=== PATIENT | male | born 1950 | race Caucasian/White ===

== ENCOUNTER 2017-04-21 17:39 | Inpatient (IN) | payer MEDICARE, OTHER ==
[~2017-04-21] VITALS: Ht 177.8 cm; Wt 78.3 kg
[~2017-04-21 17:39] MED LIST: ASPI-621 PO; ASPI325T4 PO; CARI350T PO; ENAL5TAB34 PO; HYDR-3138 PO; METO25TA35 PO; OMEP20TA62 PO; TRAM50TA2 PO; WARF7.5T6 PO-COUM
[2017-04-21] MEDS ORDERED: SODIUM CHLORIDE 0.9% 1,000ML IVBOLUS ONE ×2 (18:30→20:30)
[2017-04-21] MEDS ORDERED: ONDANSETRON 2MG/ML, 2ML IVPush ONE (18:30)
[2017-04-21] MEDS ORDERED: SODIUM CHLORIDE FLUSH 10ML SYR IVF ONE (18:30)
[2017-04-21] MEDS ORDERED: ONDANSETRON 2MG/ML, 2ML ONE (19:16)
[2017-04-21 19:34] LABS: BLOOD UREA NITROGEN 14 mg/dL (7-18)
[2017-04-21 19:37] LABS: ASPARTATE AMINO TRANSFERASE 50 U/L (15-37)
[2017-04-21 19:40] LABS: IS PT STATUS REG ER OR PRE ER? YES
[2017-04-21 19:55] LABS: DIFF TOTAL CELLS COUNTED 100 CELL DIFF
[2017-04-21 19:57] LABS: VERIFY COUNTS? YES
[2017-04-21] MEDS ORDERED: LEVOFLOXACIN/PMX 750MG/150ML 150 ML ONE (21:26)
[2017-04-21] MEDS ORDERED: LEVOFLOXACIN/PMX 750MG/150ML 150 ML IVPB ONE (21:30)
[2017-04-21] MEDS ORDERED: TEMAZEPAM 15 MG CAPSULE PO PRN (22:30)
[2017-04-21] MEDS ORDERED: DOCUSATE 100 MG CAPSULE PO PRN (22:30)
[2017-04-21] MEDS ORDERED: ENALAPRILAT 1.25 MG/ML, 2ML IVPush PRN (22:30)
[2017-04-21] MEDS ORDERED: BISACODYL 10 MG SUPP PR PRN (22:30)
[2017-04-21] MEDS ORDERED: hydrALAzine 20 MG/ML, 1ML IVPush PRN (22:30)
[2017-04-21] MEDS ORDERED: OXYcodone IR 5MG TABLET PO PRN (22:30)
[2017-04-21] MEDS ORDERED: morphine SULFATE 10 MG/ML, 1ML IVPush PRN (22:30)
[2017-04-21] MEDS ORDERED: POLYETHYLENE GLYCOL 17 GM PACKET PO PRN (22:30)
[2017-04-21] MEDS ORDERED: ONDANSETRON 2MG/ML, 2ML IVPush PRN (22:30)
[2017-04-21] MEDS: SODIUM CHLORIDE 0.9% 1,000 ML IV SCH (23:51)
[2017-04-21] MEDS: CEFTRIAXONE PMX 1GM/50ML 50 ML IV SCH (23:51)
[2017-04-22 00:03] VITALS: BP 150/69
[2017-04-22] MEDS: GUAIFENESIN ER 600 MG TABLET PO SCH ×3 (00:08→20:34)
[2017-04-22] MEDS: HEPARIN 5,000 UNITS/ML, 1ML SQ SCH ×3 (00:08→16:42)
[2017-04-22] MEDS: AZITHROMYCIN 500 MG in SODIUM CHLORIDE 0.9% 250 ML IV SCH (00:42)
[2017-04-22 01:35] VITALS: BP 133/79
[2017-04-22] MEDS: ACETAMINOPHEN 325 MG TABLET PO PRN ×2 (01:48→08:40)
[2017-04-22 04:51] LABS: BLOOD UREA NITROGEN 10 mg/dL (7-18)
[2017-04-22 04:54] LABS: ASPARTATE AMINO TRANSFERASE 87 U/L (15-37)
[2017-04-22] MEDS: SODIUM CHLORIDE 0.9% 1,000 ML IV SCH ×2 (05:31→16:42)
[2017-04-22 05:48] LABS: DIFF TOTAL CELLS COUNTED 100 CELL DIFF
[2017-04-22 05:49] LABS: VERIFY COUNTS? YES
[2017-04-22] MEDS ORDERED: MAGNESIUM SULFATE PMX 4GM/100M 100 ML IV ONE (08:00)
[2017-04-22] MEDS ORDERED: POTASSIUM CHLORIDE 20 MEQ TAB.ER.PRT PO ONE (08:00)
[2017-04-22 08:16] VITALS: BP 137/86
[2017-04-22] MEDS: PANTOPRAZOLE 40 MG IV IVPush SCH (08:39)
[2017-04-22] MEDS: CEFTRIAXONE PMX 1GM/50ML 50 ML IV SCH (12:58)
[2017-04-22 13:04] VITALS: BP 133/81
[2017-04-22 20:16] VITALS: BP 123/70
[2017-04-23] MEDS: CEFTRIAXONE PMX 1GM/50ML 50 ML IV SCH ×3 (00:09→23:40)
[2017-04-23] MEDS: HEPARIN 5,000 UNITS/ML, 1ML SQ SCH ×4 (00:09→23:41)
[2017-04-23] MEDS: ACETAMINOPHEN 325 MG TABLET PO PRN ×2 (00:09→15:00)
[2017-04-23] MEDS: AZITHROMYCIN 500 MG in SODIUM CHLORIDE 0.9% 250 ML IV SCH (00:50)
[2017-04-23 02:42] VITALS: BP 120/78
[2017-04-23 04:46] LABS: ASPARTATE AMINO TRANSFERASE 151 U/L (15-37); BLOOD UREA NITROGEN 10 mg/dL (7-18)
[2017-04-23] MEDS: PANTOPRAZOLE 40 MG IV IVPush SCH (08:38)
[2017-04-23] MEDS: GUAIFENESIN ER 600 MG TABLET PO SCH ×2 (08:39→20:50)
[2017-04-23 09:05] VITALS: BP 130/80
[2017-04-23 14:20] VITALS: BP 151/82
[2017-04-23 20:34] VITALS: BP 131/77
[2017-04-24] MEDS: AZITHROMYCIN 500 MG in SODIUM CHLORIDE 0.9% 250 ML IV SCH (00:33)
[2017-04-24 02:15] VITALS: BP 144/82
[2017-04-24 04:51] LABS: BLOOD UREA NITROGEN 8 mg/dL (7-18)
[2017-04-24] MEDS ORDERED: POTASSIUM CHLORIDE 20 MEQ TAB.ER.PRT PO ONE (07:30)
[2017-04-24] MEDS: GUAIFENESIN ER 600 MG TABLET PO SCH ×2 (08:23→20:14)
[2017-04-24] MEDS: PANTOPRAZOLE 40 MG IV IVPush SCH (08:23)
[2017-04-24] MEDS: HEPARIN 5,000 UNITS/ML, 1ML SQ SCH ×2 (08:23→16:08)
[2017-04-24 08:24] VITALS: BP 134/82
[2017-04-24] MEDS: CEFTRIAXONE PMX 1GM/50ML 50 ML IV SCH ×2 (12:11→23:10)
[2017-04-24 13:34] VITALS: BP 126/76
[2017-04-24] MEDS: ACETAMINOPHEN 325 MG TABLET PO PRN (14:49)
[2017-04-24 19:11] VITALS: BP 133/78
[2017-04-25] MEDS: AZITHROMYCIN 500 MG in SODIUM CHLORIDE 0.9% 250 ML IV SCH (00:33)
[2017-04-25] MEDS: HEPARIN 5,000 UNITS/ML, 1ML SQ SCH ×2 (00:33→07:57)
[2017-04-25 01:43] VITALS: BP 137/78
[2017-04-25 04:39] LABS: BLOOD UREA NITROGEN 9 mg/dL (7-18)
[2017-04-25 04:42] LABS: ASPARTATE AMINO TRANSFERASE 374 U/L (15-37)
[2017-04-25 06:27] VITALS: BP 150/84
[2017-04-25] MEDS ORDERED: PANTOPROZOLE 40MG TABLET PO SCH (07:30)
[2017-04-25] MEDS: GUAIFENESIN ER 600 MG TABLET PO SCH (07:57)
[2017-04-25] MEDS ORDERED: CEFD300C37 PO (10:30)
== END 2017-04-25 11:48 | disposition home or self-care (01) | DRG 871 ==
LOC: ED 22:29 → EDIP 22:30 → ED 22:48 → 3NW 23:12 → DCLOUNGE 04-25 11:20
PROVIDERS: ADMIT Internal Medicine; ATTEND Internal Medicine
DX: A41.9 Sepsis, unspecified organism (principal); J18.1 Lobar pneumonia, unspecified organism; E43 Unspecified severe protein-calorie malnutrition; E87.1 Hypo-osmolality and hyponatremia; E86.0 Dehydration; K21.9 Gastro-esophageal reflux disease without esophagitis; K22.70 Barrett's esophagus without dysplasia; K76.0 Fatty (change of) liver, not elsewhere classified; Z95.2 Presence of prosthetic heart valve; Z68.24 Body mass index [BMI] 24.0-24.9, adult
CPT/HCPCS: 36415; 71010; 74020; 74177; 80048; 80053; 80061; 81001; 83036; 83605; 83690; 83735; 83880; 84145; 84439; 84443; 84484; 85025; 87040; 87324; 93005; 96361; 96374; J0456; J0696; J1644; J1956; J2405; C9113; J3475; J7030; J7050